=== PATIENT | female | born 1945 | race Caucasian/White ===

== ENCOUNTER → 2020-11-10 10:30 | Outpatient (BNVA) | payer MEDICARE, MEDICAID, SELFPAY | PROVIDERS: Family Provider Nurse Practitioner Family; PCP Nurse Practitioner Family; Referring Provider Nurse Practitioner Family; Visit Provider Anesthesiology Pain Medicine | DX: G89.29 Other chronic pain (principal); M54.16 Radiculopathy, lumbar region; M54.9 Dorsalgia, unspecified; Z90.89 Acquired absence of other organs | CPT/HCPCS: 99205 ==

== ENCOUNTER 2020-11-22 09:15 | Outpatient (CLI) | payer MEDICARE, MEDICAID, SELFPAY ==
--- NOTE | 2020-11-22 09:35 | MR_ITS ---
WS: [id number] MRI LUMBAR SPINE NONCONTRAST HISTORY: M54.16 - Radiculopathy, lumbar region COMPARISON: None available. TECHNIQUE: Sagittal and axial multisequence imaging is submitted. Advanced degenerative changes in the cervical spine. Cervical disc and osteophyte disease encroaching upon the cervical cord with multilevel areas of stenosis. Moderate thoracic spondylitic changes. No cord compression in the thoracic spine. Marked LEFT curvature of the lumbar spine with asymmetric disc space narrowing. There is severe disc space narrowing and desiccation with chronic endplate changes. L1 retrolisthesis by 2 mm and L5 anterolisthesis by 6 mm. Conus terminates normally at L1-2 disc level. T12-L1: Diffuse annular disc bulging and facet arthritis and osteophytosis. Mild bilateral foraminal stenosis. L1-L2: Diffuse asymmetric disc bulging with marked ligamentum flavum disease and facet arthritis. Dis c and osteophyte encroachment upon the thecal sac and foramen. Mild central and bilateral subarticula r recess and RIGHT foraminal stenosis. Severe LEFT foraminal stenosis. L2-L3: Diffuse asymmetric disc bulging with deformity of the thecal sac. Severe RIGHT facet joint art hritis and encroachment into the thecal sac and foramen. Severe RIGHT and moderate LEFT foraminal javier nosis. L3-L4: Diffuse osteophytic ridging with annular disc bulging with severe ligamentum flavum disease an d facet arthritis. Moderate central and bilateral subarticular recess and foraminal stenosis. Foramin al stenosis greatest on the RIGHT. L4-L5: Moderate diffuse annular disc bulging and osteophytic ridging with severe facet joint arthriti s and ligamentum flavum hypertrophy. Mild central and bilateral foraminal stenosis. L5-S1: Unroofing of the disc with annular disc bulging and osteophytic ridging. Severe LEFT and moder ate RIGHT foraminal stenosis and moderate central stenosis. MR/MR lumbar spine wo con* [id number] IMPRESSION: 1. Severe degenerative rotoscoliosis in the lumbar spine with multilevel areas of stenoses. Significant multilevel facet joint arthritis and ligamentum flavu m hypertrophy contributing to the stenosis and degenerative stenoses. 2. Severe LEFT foraminal stenosis at L1-2 with mild central, bilateral subarti cular and RIGHT foraminal stenosis. 3. Severe RIGHT and moderate LEFT foraminal stenosis at L2-3. 4. Moderate central, bilateral subarticular and foraminal stenosis at L3-4. 5. Severe LEFT and moderate RIGHT foraminal stenosis with moderate central javier nosis at L5-S1.
== END 2020-11-22 09:16 | disposition home or self-care (01) ==
PROVIDERS: PCP Nurse Practitioner Family; Visit Provider Anesthesiology Pain Medicine
DX: M54.16 Radiculopathy, lumbar region (principal); M48.07 Spinal stenosis, lumbosacral region; M48.061 Spinal stenosis, lumbar region without neurogenic claudication; M41.86 Other forms of scoliosis, lumbar region
CPT/HCPCS: 72148

== ENCOUNTER → 2020-12-08 10:19 | Outpatient (BNVA) | payer MEDICARE, MEDICAID, SELFPAY | PROVIDERS: PCP Nurse Practitioner Family; Visit Provider Anesthesiology Pain Medicine | DX: M51.16 Intervertebral disc disorders with radiculopathy, lumbar region (principal); M54.9 Dorsalgia, unspecified; M47.816 Spondylosis without myelopathy or radiculopathy, lumbar region; N18.30 Chronic kidney disease, stage 3 unspecified; Z90.89 Acquired absence of other organs; Z79.891 Long term (current) use of opiate analgesic | CPT/HCPCS: 99215 ==

== ENCOUNTER → 2020-12-13 13:10 | Outpatient (BNVA) | payer MEDICARE, MEDICAID, SELFPAY | PROVIDERS: PCP Nurse Practitioner Family; Visit Provider Anesthesiology Pain Medicine | DX: M47.816 Spondylosis without myelopathy or radiculopathy, lumbar region (principal) | CPT/HCPCS: 64493; 64494; 64495; J3490 ==

== ENCOUNTER → 2020-12-22 13:31 | Outpatient (BNVA) | payer MEDICARE, MEDICAID, SELFPAY | PROVIDERS: PCP Nurse Practitioner Family; Visit Provider Anesthesiology Pain Medicine | DX: M47.816 Spondylosis without myelopathy or radiculopathy, lumbar region (principal); M51.16 Intervertebral disc disorders with radiculopathy, lumbar region; M54.9 Dorsalgia, unspecified; N18.30 Chronic kidney disease, stage 3 unspecified; Z90.89 Acquired absence of other organs | CPT/HCPCS: 99214 ==

== ENCOUNTER → 2021-01-04 13:14 | Outpatient (BNVA) | payer MEDICARE, MEDICAID, SELFPAY | PROVIDERS: PCP Nurse Practitioner Family; Visit Provider Anesthesiology Pain Medicine | DX: M47.816 Spondylosis without myelopathy or radiculopathy, lumbar region (principal); M54.9 Dorsalgia, unspecified | CPT/HCPCS: 64635; 64636 ==

== ENCOUNTER → 2021-01-18 12:59 | Outpatient (BNVA) | payer MEDICARE, MEDICAID, SELFPAY | PROVIDERS: PCP Nurse Practitioner Family; Visit Provider Anesthesiology Pain Medicine | DX: M47.816 Spondylosis without myelopathy or radiculopathy, lumbar region (principal); M54.9 Dorsalgia, unspecified | CPT/HCPCS: 64635; 64636; J1030 ==

== ENCOUNTER → 2021-02-02 09:21 | Outpatient (BNVA) | payer MEDICARE, MEDICAID, SELFPAY | PROVIDERS: PCP Nurse Practitioner Family; Visit Provider Anesthesiology Pain Medicine | DX: M51.16 Intervertebral disc disorders with radiculopathy, lumbar region (principal); M47.816 Spondylosis without myelopathy or radiculopathy, lumbar region; M54.9 Dorsalgia, unspecified; N18.30 Chronic kidney disease, stage 3 unspecified; Z90.89 Acquired absence of other organs | CPT/HCPCS: 99213 ==

== ENCOUNTER 2021-04-19 12:38 | Outpatient (CLI) | payer MEDICARE, MEDICAID, SELFPAY ==
--- NOTE | 2021-04-19 12:45 | US_ITS ---
WS: [id number] ULTRASOUND RENAL TECHNIQUE: Ultrasound examination of both kidneys. CLINICAL INFORMATION: STAGE 3B CHRONIC KIDNEY DZ COMPARISON: None. FINDINGS: RIGHT: Right kidney is normal in size and appearance. Echogenicity: Normal. Cortical thickness: 1.2 cm; Normal. Hydronephrosis: None. Perinephric fluid: None. Right kidney measures: 9.2 cm x 4.1 cm x 4.5 cm. LEFT: Left kidney is normal in size and appearance. Echogenicity: Normal. Cortical thickness: 1.0 cm; Normal. Hydronephrosis: None. Perinephric fluid: None. Left kidney measures: 9.0 cm x 3.1 cm x 4.0 cm. Normal visualized aorta. Bladder is decompressed. US/US renal BI* [id number] IMPRESSION: 1. Normal renal ultrasound. 2. Bladder is decompressed.
== END 2021-04-19 12:39 | disposition home or self-care (01) ==
LOC: RAD 12:45
PROVIDERS: PCP Nurse Practitioner Family; Visit Provider Registered Nurse
DX: N18.32 Chronic kidney disease, stage 3b (principal)
CPT/HCPCS: 76770

== ENCOUNTER → 2021-05-04 10:20 | Outpatient (BNVA) | payer MEDICARE, MEDICAID, SELFPAY | PROVIDERS: PCP Nurse Practitioner Family; Visit Provider Anesthesiology Pain Medicine | DX: M47.816 Spondylosis without myelopathy or radiculopathy, lumbar region (principal); M51.16 Intervertebral disc disorders with radiculopathy, lumbar region; N18.30 Chronic kidney disease, stage 3 unspecified; M79.604 Pain in right leg; M79.605 Pain in left leg; Z90.89 Acquired absence of other organs; Z77.22 Contact with and (suspected) exposure to environmental tobacco smoke (acute) (chronic) | CPT/HCPCS: 99213 ==

== ENCOUNTER → 2021-10-10 11:27 | Day surgery (SDC) | payer MEDICARE, MEDICAID, SELFPAY ==
[2021-10-10 12:07] LABS: Blood Urea Nitrogen 20 mg/dL (8-23); Calcium 9.1 mg/dL (8.5-10.5)
--- NOTE | 2021-10-10 12:20 | PC.NURSE ---
Pt to GI lab for Reclast infusion. Pt Calcium WNL, however, Creatnine Clearance 32. Orders state not to give Reclast if CrCL less than 35. Reclast not infused. Pt states her PCP is JOSTIN Asif. Office notified of lab work and that Reclast not given.
[2021-10-10 12:53] VITALS: BP 107/59; PULSE 70; RESP 18; TEMP 36.4; O2SAT 96
--- NOTE | 2021-10-10 12:55 | PC.NURSE ---
Ordering physician, David Barone DO, office notified of abnormal lab results and Reclast not given as well.
== END ==
PROVIDERS: PCP Nurse Practitioner Family; Visit Provider Family Medicine
DX: M81.0 Age-related osteoporosis without current pathological fracture (principal)
CPT/HCPCS: 36415; 82310; 82565; 84520

== ENCOUNTER 2021-12-02 10:59 | Outpatient (CLI) | payer MEDICARE, MEDICAID, SELFPAY ==
--- NOTE | 2021-12-02 11:07 | MM_ITS ---
WS: [id number] SCREENING DIGITAL BREAST TOMOSYNTHESIS MAMMOGRAM WITH CAD HISTORY: SCREENING COMPARISON: None available. Attempted to retrieve prior mammograms from an outside institution withou t success. Bilateral CC and MLO with tomosynthesis and synthetic mammography submitted. Computer aided detection analyzed. Breast composition: There are scattered areas of fibroglandular density. Asymmetry in the upper outer quadrant RIGHT breast at a middle depth needs further evaluation. There are additional benign calcif ications within each breast. No additional masses or asymmetry. MM/[place] [id number] IMPRESSION: BI-RADS: 0-Incomplete: Need additional imaging evaluation FOLLOW UP: Need Additional Imaging RIGHT breast: Spot compression views (CC and MLO). True ML. Ultrasound to follo w if abnormality persists.
== END 2021-12-02 11:00 | disposition home or self-care (01) ==
LOC: RAD 11:02
PROVIDERS: PCP Nurse Practitioner Family; Visit Provider Family Medicine
DX: Z12.31 Encounter for screening mammogram for malignant neoplasm of breast (principal)
CPT/HCPCS: 77063; 77067

== ENCOUNTER → 2021-12-21 09:35 | Outpatient (BNVA) | payer MEDICARE, MEDICAID, SELFPAY | PROVIDERS: PCP Nurse Practitioner Family; Visit Provider Anesthesiology Pain Medicine | DX: M51.16 Intervertebral disc disorders with radiculopathy, lumbar region (principal); M47.816 Spondylosis without myelopathy or radiculopathy, lumbar region; N18.30 Chronic kidney disease, stage 3 unspecified; M79.604 Pain in right leg; M79.605 Pain in left leg; Z90.89 Acquired absence of other organs; Z79.891 Long term (current) use of opiate analgesic | CPT/HCPCS: 99214 ==

== ENCOUNTER → 2022-01-18 09:37 | Outpatient (BNVA) | payer MEDICARE, MEDICAID, SELFPAY | PROVIDERS: PCP Nurse Practitioner Family; Visit Provider Anesthesiology Pain Medicine | DX: M47.816 Spondylosis without myelopathy or radiculopathy, lumbar region (principal); M51.16 Intervertebral disc disorders with radiculopathy, lumbar region; N18.30 Chronic kidney disease, stage 3 unspecified; M79.604 Pain in right leg; M79.605 Pain in left leg; Z90.89 Acquired absence of other organs; Z79.891 Long term (current) use of opiate analgesic | CPT/HCPCS: 99215 ==

== ENCOUNTER 2022-01-19 09:26 | Outpatient (CLI) | payer MEDICARE, MEDICAID, SELFPAY ==
--- NOTE | 2022-01-19 09:51 | MM_ITS ---
WS: [email or web address] ADDITIONAL VIEWS RIGHT MAMMOGRAM WITH DIGITAL BREAST TOMOSYNTHESIS. RIGHT BREAST ULTRASOUND HISTORY: ABNORMAL MAMMOGRAM COMPARISON: 12/02/2021 RIGHT MAMMOGRAM: Spot compression views and true ML with digital breast tomosynthesis and SM. Asymmetry persists but becomes less apparent in the upper outer quadrant of the RIGHT breast. Ultraso und will be performed to better identify and characterize this density. There are a few benign calcif ications which are stable. RIGHT BREAST ULTRASOUND 2-D and color Doppler imaging submitted. No soft tissue mass identified in the upper outer quadrant of the RIGHT breast. There is a small cyst measuring 2 x 2 by 2 mm. MM/[place] [id number] IMPRESSION: BI-RADS: 2-Benign FOLLOW UP: 1 Year Follow-up
== END 2022-01-19 09:27 | disposition home or self-care (01) ==
LOC: RAD 09:30
PROVIDERS: PCP Nurse Practitioner Family; Visit Provider Family Medicine
DX: R92.8 Other abnormal and inconclusive findings on diagnostic imaging of breast (principal); R92.1 Mammographic calcification found on diagnostic imaging of breast; N60.01 Solitary cyst of right breast
CPT/HCPCS: 76642; 77061

== ENCOUNTER → 2022-03-28 14:12 | Outpatient (BNVA) | payer MEDICARE, MEDICAID, SELFPAY | PROVIDERS: PCP Nurse Practitioner Family; Visit Provider Anesthesiology Pain Medicine | DX: M47.816 Spondylosis without myelopathy or radiculopathy, lumbar region (principal); Z79.891 Long term (current) use of opiate analgesic | CPT/HCPCS: 64635; 64636; J1030 ==

== ENCOUNTER 2022-11-24 09:32 | Outpatient (CLI) | payer MEDICARE, MEDICAID, SELFPAY ==
--- NOTE | 2022-11-24 09:49 | XR_ITS ---
WS: [id number] Exam: XR shoulder RT min 2V* [id number] Date/Time of Exam: 11/24/2022 10:21 AM Reason For Exam: R SHOULDER JOINT PAIN No acute fracture or dislocation. High riding humeral head noted that might indicate long-standing ro tator cuff tear. Normal soft tissues. XR/XR shoulder RT min 2V* [id number] IMPRESSION: 1. Slight degenerative change. No fracture or dislocation. 2. High riding humeral head that might indicate long-standing rotator cuff tear .
== END 2022-11-24 09:33 | disposition home or self-care (01) ==
LOC: RAD 09:39
PROVIDERS: PCP Nurse Practitioner Family; Visit Provider Nurse Practitioner Family
DX: M25.511 Pain in right shoulder (principal)
CPT/HCPCS: 73030

== ENCOUNTER → 2023-02-05 09:31 | Outpatient (BNVA) | payer MEDICARE, MEDICAID, SELFPAY | PROVIDERS: PCP Nurse Practitioner Family; Referring Provider Nurse Practitioner Family; Visit Provider Student in an Organized Health Care Education/Training Program | DX: M25.511 Pain in right shoulder (principal); M75.41 Impingement syndrome of right shoulder | CPT/HCPCS: 20610; 73030; 99204; J3301 ==

== ENCOUNTER 2023-02-21 06:00 | Outpatient (RCR) | payer MEDICARE, MEDICAID, SELFPAY | END 2023-02-26 23:59 | disposition home or self-care (01) | LOC: TPT 06:00 | PROVIDERS: Visit Provider Student in an Organized Health Care Education/Training Program | DX: M25.511 Pain in right shoulder (principal) | CPT/HCPCS: 97110; 97162 ==

== ENCOUNTER 2023-02-27 06:00 | Outpatient (RCR) | payer MEDICARE, MEDICAID, SELFPAY | END 2023-03-29 23:59 | disposition home or self-care (01) | LOC: TPT 06:00 | PROVIDERS: Visit Provider Student in an Organized Health Care Education/Training Program | DX: M25.511 Pain in right shoulder (principal) | CPT/HCPCS: 97110 ==

== ENCOUNTER 2023-10-23 13:20 | Outpatient (CLI) | payer MEDICARE, MEDICAID, SELFPAY ==
--- NOTE | 2023-10-23 13:27 | XR_ITS ---
WS: [email or web address] SCREENING DEXA SCAN [employer] CLINICAL INFORMATION: OSTEOPOROSIS COMPARISON: None. FINDINGS: The L1-L4 bone mineral density measures 1.349 g/cm2. This corresponds to a T score score of 1.4 and Z score of 3.8. Left femoral neck bone mineral density measures 0.697 g/cm2. This corresponds to a T score of -2.5 an d Z score of -0.2. Right femoral neck bone mineral density measures 0.393 g/cm2. This corresponds to a T score -4.9of an d Z score of -2.6. IMPRESSION: Normal bone mineralization lumbar spine. Osteoporosis femoral necks. Patient's FRAX calculated 10 year probability for major osteoporotic fracture is 45.0% and osteoporot ic hip fracture is 30.2%.
== END 2023-10-23 13:21 | disposition home or self-care (01) ==
LOC: RAD 13:22
PROVIDERS: Visit Provider Family Medicine
DX: M81.0 Age-related osteoporosis without current pathological fracture (principal)
CPT/HCPCS: 77080

== ENCOUNTER 2023-11-13 06:00 | Outpatient (RCR) | payer MEDICARE, MEDICAID, SELFPAY | END 2023-11-27 23:59 | disposition home or self-care (01) | LOC: TPT 06:00 | PROVIDERS: Visit Provider Nurse Practitioner Family | DX: M25.511 Pain in right shoulder (principal) | CPT/HCPCS: 97110; 97162 ==

== ENCOUNTER → 2023-11-20 11:08 | Outpatient (BNVA) | payer MEDICARE, MEDICAID, SELFPAY | PROVIDERS: Visit Provider Anesthesiology Pain Medicine | DX: M51.16 Intervertebral disc disorders with radiculopathy, lumbar region (principal); M47.816 Spondylosis without myelopathy or radiculopathy, lumbar region; N18.30 Chronic kidney disease, stage 3 unspecified; Z90.89 Acquired absence of other organs; M48.061 Spinal stenosis, lumbar region without neurogenic claudication | CPT/HCPCS: 99214 ==

== ENCOUNTER 2023-11-28 06:00 | Outpatient (RCR) | payer MEDICARE, MEDICAID, SELFPAY | END 2023-12-28 23:59 | disposition home or self-care (01) | LOC: TPT 06:00 | PROVIDERS: Visit Provider Nurse Practitioner Family | DX: M25.511 Pain in right shoulder (principal) | CPT/HCPCS: 97110; 97140 ==

== ENCOUNTER 2023-12-29 06:00 | Outpatient (RCR) | payer MEDICARE, MEDICAID, SELFPAY | END 2024-01-27 23:59 | disposition home or self-care (01) | LOC: TPT 06:00 | PROVIDERS: Visit Provider Nurse Practitioner Family | DX: M25.511 Pain in right shoulder (principal) | CPT/HCPCS: 97110; 97140 ==

== ENCOUNTER 2024-06-09 14:11 | Outpatient (CLI) | payer MEDICARE, MEDICAID, SELFPAY ==
--- NOTE | 2024-06-09 14:20 | XRR_ITS ---
PROCEDURE INFORMATION: Exam: XR Lumbosacral Spine Exam date and time: 06/09/2024 2:27 PM Age: 79 years old Clinical indication: Low back pain; Additional info: Vertebrogenic low back pain, please comment on presence or absence of spinal instability TECHNIQUE: Imaging protocol: Radiologic exam of the lumbosacral spine. Views: 2 or 3 views. COMPARISON: MR lumbar spine wo con* [id number] 11/22/2020 9:51 AM FINDINGS: Bones/joints: Severe multilevel spondylosis of the lumbar spine with facet arthrosis, osteophytosis and endplate degeneration. No evidence of acute fracture or subluxation. Mild degenerative retrolisthesis of L1 on L2 and L2 on L3. No evidence of dynamic instability. The sacrum is grossly intact. Soft tissues: Grossly unremarkable. XR/XR lumbar spine f/e only [id number] IMPRESSION: 1. Severe spondylosis without evidence of acute fracture or subluxation of the lumbar spine. Consider correlation with follow-up outpatient MRI to evaluate for neural impingement.
== END 2024-06-09 14:12 | disposition home or self-care (01) ==
LOC: RAD 14:16
PROVIDERS: PCP Nurse Practitioner Family; Visit Provider Nurse Practitioner
DX: M47.896 Other spondylosis, lumbar region (principal); M25.78 Osteophyte, vertebrae
CPT/HCPCS: 72120

== ENCOUNTER → 2024-11-24 09:13 | Outpatient (BNVA) | payer MEDICARE, MEDICAID, SELFPAY | PROVIDERS: PCP Nurse Practitioner Family; Visit Provider Anesthesiology Pain Medicine | DX: M54.9 Dorsalgia, unspecified (principal); M51.16 Intervertebral disc disorders with radiculopathy, lumbar region; M47.26 Other spondylosis with radiculopathy, lumbar region | CPT/HCPCS: 99214 ==

== ENCOUNTER 2024-11-26 14:04 | Outpatient (CLI) | payer MEDICARE, MEDICAID, SELFPAY ==
--- NOTE | 2024-11-26 14:30 | MRR_ITS ---
PROCEDURE INFORMATION: Exam: MR Lumbar Spine Without Contrast Exam date and time: 11/26/2024 2:38 PM Age: 79 years old Clinical indication: Low back pain; Lbp RT sided. Rle pain with at times numbness to thigh; Additional info: M54.16 - radiculopathy, lumbar region TECHNIQUE: Imaging protocol: Magnetic resonance imaging of the lumbar spine without contrast. COMPARISON: MR lumbar spine wo con* [id number] 11/22/2020 9:51 AM FINDINGS: Bones/joints: Grade 1 anterolisthesis of L5 on S1 measuring up to 0.6 cm. Levoscoliosis centered at L2-L3. The vertebral body heights are maintained. Moderate multilevel disc space narrowing throughout the lumbar spine with associated adjacent endplate changes. Stable low T1 and T2 focus left iliac bone measuring up to 1 cm in size and may represent an area of nonspecific sclerosis. Spinal cord: The conus terminates normally at the L1-L2 level. The roots of the cauda equina are not clumped or thickened. 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 L1-L2: Broad concentric disc bulge and bilateral facet arthropathy contributing to moderate central canal stenosis. Moderate left and mild right neuroforaminal narrowing. L2-L3: Broad concentric disc bulge with a right lateral component along with bilateral facet arthropathy contributing to moderate central canal stenosis. Mild left and severe right neuroforaminal narrowing . L3-L4: Broad concentric disc bulge and bilateral facet arthropathy contributing to moderate central canal stenosis. Moderate left and severe right neuroforaminal narrowing. L4-L5: Broad concentric disc bulge and bilateral facet arthropathy contributing to moderate central canal stenosis. Moderate bilateral neuroforaminal narrowing. L5-S1: Broad concentric disc bulge and bilateral facet arthropathy contributing to mild central canal stenosis. Mild right and severe left neuroforaminal narrowing. Soft tissues: Subcentimeter bilateral renal cysts. MR/MR lumbar spine wo con* [id number] IMPRESSION: Multilevel degenerative changes of the lumbar spine as outlined above.
== END 2024-11-26 14:05 | disposition home or self-care (01) ==
PROVIDERS: PCP Nurse Practitioner Family; Visit Provider Anesthesiology Pain Medicine
DX: M54.16 Radiculopathy, lumbar region (principal); R93.7 Abnormal findings on diagnostic imaging of other parts of musculoskeletal system; M51.369 Other intervertebral disc degeneration, lumbar region without mention of lumbar back pain or lower extremity pain; G96.191 Perineural cyst; M47.896 Other spondylosis, lumbar region; M48.061 Spinal stenosis, lumbar region without neurogenic claudication; M51.379 Other intervertebral disc degeneration, lumbosacral region without mention of lumbar back pain or lower extremity pain; M47.897 Other spondylosis, lumbosacral region; M48.07 Spinal stenosis, lumbosacral region; N28.1 Cyst of kidney, acquired
CPT/HCPCS: 72148

== ENCOUNTER → 2024-12-08 11:15 | Outpatient (BNVA) | payer MEDICARE, MEDICAID, SELFPAY | PROVIDERS: PCP Nurse Practitioner Family; Visit Provider Anesthesiology Pain Medicine | DX: M54.9 Dorsalgia, unspecified (principal); M47.816 Spondylosis without myelopathy or radiculopathy, lumbar region; M51.16 Intervertebral disc disorders with radiculopathy, lumbar region; N18.30 Chronic kidney disease, stage 3 unspecified; Z90.89 Acquired absence of other organs | CPT/HCPCS: 99214 ==

== ENCOUNTER → 2025-01-07 10:47 | Outpatient (BNVA) | payer MEDICARE, MEDICAID, SELFPAY | PROVIDERS: PCP Nurse Practitioner Family; Visit Provider Anesthesiology Pain Medicine | DX: M47.816 Spondylosis without myelopathy or radiculopathy, lumbar region (principal); M54.9 Dorsalgia, unspecified | CPT/HCPCS: 64493; 64494; 64495; J3490; J9999 ==

== ENCOUNTER → 2025-01-13 09:38 | Outpatient (BNVA) | payer MEDICARE, MEDICAID, SELFPAY | PROVIDERS: PCP Nurse Practitioner Family; Visit Provider Anesthesiology Pain Medicine | DX: M54.9 Dorsalgia, unspecified (principal); M47.816 Spondylosis without myelopathy or radiculopathy, lumbar region; M51.16 Intervertebral disc disorders with radiculopathy, lumbar region; N18.30 Chronic kidney disease, stage 3 unspecified; Z90.89 Acquired absence of other organs | CPT/HCPCS: 99214 ==

== ENCOUNTER → 2025-01-28 10:40 | Outpatient (BNVA) | payer MEDICARE, MEDICAID, SELFPAY | PROVIDERS: PCP Family Medicine; Visit Provider Anesthesiology Pain Medicine | DX: M47.816 Spondylosis without myelopathy or radiculopathy, lumbar region (principal); M54.9 Dorsalgia, unspecified | CPT/HCPCS: 64493; 64494; 64495; J3490; J9999 ==

== ENCOUNTER → 2025-02-10 09:05 | Outpatient (BNVA) | payer MEDICARE, MEDICAID, SELFPAY | PROVIDERS: PCP Family Medicine; Visit Provider Anesthesiology Pain Medicine | DX: M54.9 Dorsalgia, unspecified (principal); M47.816 Spondylosis without myelopathy or radiculopathy, lumbar region; M51.16 Intervertebral disc disorders with radiculopathy, lumbar region | CPT/HCPCS: 99214 ==

== ENCOUNTER 2025-03-04 14:34 | Outpatient (CLI) | payer MEDICARE, MEDICAID, SELFPAY ==
--- NOTE | 2025-03-04 14:48 | US_ITS ---
WS: [id number] RENAL ULTRASOUND HISTORY: GROSS HEMATURIA/GENERAL RENAL PARENCHYMAL DZ COMPARISON: 04/19/2021 TECHNIQUE: 2-D and color Doppler imaging of the kidney submitted. Right kidney: 9.0 cm x 3.9 cm x 4.1 cm. Cortex: 1.0 cm Normal echogenicity with no hydronephrosis or mass. Left kidney: 8.2 cm x 3.4 cm x 3.5 cm. Cortex: 1.0 cm LEFT kidney is difficult to visualize in its entirety due to its position. Kidney is measuring small in length but this may be due to incomplete evaluation of the kidney. The cortex is minimally thinned. Aorta: Normal. Urinary Bladder: Normal distention. US/US renal BI* [id number] IMPRESSION: 1. LEFT kidney measuring small in size. In part this may be due to difficulty visualizing the entire kidney. 2. There is no hydronephrosis. Normal echogenicity. 3. No renal mass.
== END 2025-03-04 14:35 | disposition home or self-care (01) ==
LOC: RAD 14:37
PROVIDERS: PCP Family Medicine; Visit Provider Registered Nurse
DX: R31.9 Hematuria, unspecified (principal); N28.9 Disorder of kidney and ureter, unspecified
CPT/HCPCS: 76770

== ENCOUNTER → 2025-03-11 12:36 | Outpatient (BNVA) | payer MEDICARE, MEDICAID, SELFPAY | PROVIDERS: PCP Family Medicine; Visit Provider Anesthesiology Pain Medicine | DX: M47.816 Spondylosis without myelopathy or radiculopathy, lumbar region (principal); M54.9 Dorsalgia, unspecified | CPT/HCPCS: 64635; 64636; J1100; J9999 ==

== ENCOUNTER → 2025-03-24 07:54 | Outpatient (BNVA) | payer MEDICARE, MEDICAID, SELFPAY | PROVIDERS: PCP Family Medicine; Visit Provider Anesthesiology Pain Medicine | DX: M54.9 Dorsalgia, unspecified (principal); M47.816 Spondylosis without myelopathy or radiculopathy, lumbar region; M51.16 Intervertebral disc disorders with radiculopathy, lumbar region; N18.30 Chronic kidney disease, stage 3 unspecified; Z90.89 Acquired absence of other organs | CPT/HCPCS: 99213 ==

== ENCOUNTER 2025-05-29 09:20 | Outpatient (CLI) | payer MEDICARE, MEDICAID, SELFPAY ==
--- NOTE | 2025-05-29 09:25 | MR_ITS ---
WS: [email or web address] MRI HEAD WITHOUT CONTRAST TECHNIQUE: Sagittal T1, T2 axial, T2 axial FLAIR, axial and coronal T1 images, axial susceptibility weighted imaging, axial diffusion weighted images, and coronal T2 images were obtained. CLINICAL INFORMATION: LOSS OF COORDINATION,UNSPECIFIED FALL COMPARISON: None. FINDINGS: No evidence of restricted diffusion to suggest acute ischemia. Moderate small vessel changes with moderate parenchymal volume loss. Small vessel changes in the zainab. No hemosiderin on the susceptibility weighted images. Moderate symmetric atrophy temporal lobes and hippocampal formations. Normal posterior fossa. Normal vascular flow voids at the skull base. No extra- axial fluid collections. Paranasal sinuses and mastoid air cells are well aerated. Partially visualized deformity of the C3 vertebral body with posterior protrusion may be due to prior healed fracture but incompletely visualized. Slight indentation cervical cord with mild central canal stenosis. Recommend further evaluation with cervical spine CT MR/MR head wo con* [id number] IMPRESSION: 1. No evidence of restricted diffusion to suggest acute ischemia. 2. Partially visualized deformity of the C3 vertebral body may be due to prior healed fracture. This is incompletely evaluated. Recommend further evaluation with cervical spine CT. Mild central canal stenosis at the C3 level with slight indentation on the cervical cord. 3. Moderate small vessel changes. Moderate parenchymal volume loss. Small vess el changes in the zainab. 4. No extra-axial fluid collections. 5. No hemosiderin on the susceptibly weighted images. 6. No other acute findings.
== END 2025-05-29 09:21 | disposition home or self-care (01) ==
PROVIDERS: PCP Family Medicine; Visit Provider Family Medicine
DX: R27.9 Unspecified lack of coordination (principal); T14.90XA Injury, unspecified, initial encounter; W19.XXXA Unspecified fall, initial encounter; Z87.311 Personal history of (healed) other pathological fracture; R90.89 Other abnormal findings on diagnostic imaging of central nervous system; G31.9 Degenerative disease of nervous system, unspecified; I67.89 Other cerebrovascular disease
CPT/HCPCS: 70551

== ENCOUNTER 2025-06-17 13:23 | Outpatient (CLI) | payer MEDICARE, MEDICAID, SELFPAY ==
--- NOTE | 2025-06-17 13:30 | CT_ITS ---
WS: [email or web address] CT CERVICAL SPINE TECHNIQUE: Noncontrast CT of the cervical spine with coronal and sagittal reformatted images. CLINICAL INFORMATION: ABNORMAL BRAIN MRI COMPARISON: None. DLP: 141.[address] scans at [facility] use at least one of these dose optimization techniques: automated exposure control; mA and/or kV adjustment per patient size (includes targeted exams where dose is matched to clinical indication); or iterative reconstruction. FINDINGS: Straightening of the normal cervical lordosis. Moderate to advanced spondylitic changes. Grade 1-2 anterolisthesis C3 on C4. Grade 1 anterolisthesis C6 on C7. This is probably due to prior trauma with fracture deformity. Bony ankylosis C3- C4 and C6-7. Ankylosis of the posterior elements at RIGHT C3-4 and RIGHT C6-7. C2-C3: Mild disc bulging with mild to moderate central canal stenosis. Moderate LEFT and no significant RIGHT foraminal narrowing. Moderate facet arthropathy. C3-C4: Grade 1-2 anterolisthesis. Disc osteophyte complex with mild to moderate central canal stenosis. Moderate facet arthropathy. Mild bilateral bony foraminal narrowing. C4-C5: Disc osteophyte complex with endplate ridging. Moderate facet arthropathy. Moderate RIGHT bony foraminal narrowing. Facet arthropathy with uncovertebral joint hypertrophy. Mild to moderate moderate central canal stenosis. C5-C6: Disc osteophyte complex with endplate ridging. Moderate facet arthropathy. Mild bilateral bony foraminal narrowing. C6-C7: Grade 1 anterolisthesis. Mild LEFT and no significant RIGHT foraminal narrowing. Uncovertebral joint hypertrophy. Spinal canal is patent. C7-T1: Slight anterolisthesis C7 on T1. Spinal canal and foramen are patent. Visualized posterior nasopharynx: Normal. Prevertebral soft tissues: Normal. Carotid bulb calcification CT/CT cervical spin wo con* [id number] IMPRESSION: 1. Advanced spondylitic changes. Grade 1-2 anterolisthesis C3 on C4 with bony ankylosis. Grade 1 anterolisthesis C6 on C7 bony ankylosis. Slight anterolisthe sis C7 on T1. Findings likely due to prior healed fracture deformities. 2. Ankylosis across the C3-4 and C6-7 disc space with ankylosis of the posteri or elements at RIGHT C3-4 and RIGHT C6-7. 3. Mild to moderate central canal stenosis C2-3, C3-4, and C4-5. 4. Bony foraminal narrowing described above
== END 2025-06-17 13:24 | disposition home or self-care (01) ==
LOC: RAD 13:24
PROVIDERS: PCP Family Medicine; Visit Provider Family Medicine
DX: R94.02 Abnormal brain scan (principal); M50.31 Other cervical disc degeneration, high cervical region; M48.02 Spinal stenosis, cervical region; M47.812 Spondylosis without myelopathy or radiculopathy, cervical region
CPT/HCPCS: 72125

== ENCOUNTER 2025-07-17 10:32 | Outpatient (CLI) | payer MEDICARE, MEDICAID, SELFPAY ==
[2025-07-17 12:36] LABS: Albumin Level 4.9 g/dL (3.5-5.2); Anion Gap 18.8 (5-19); Blood Urea Nitrogen 17 mg/dL (8-23); Calcium 10.2 mg/dL (8.5-10.5); Carbon Dioxide 23 mmol/L (22-29); Chloride 99 mmol/L (98-107); Glucose 89 mg/dL (65-115); Potassium 3.8 mmol/L (3.5-5.1); Sodium 137 mmol/L (136-145)
[2025-07-17 12:43] LABS: Creatinine Urine, Random 128 mg/dL (28-217); Microalbum Creatinine Ratio Ur 39 mg/dL (0-20)
[2025-07-17 12:44] LABS: UPRO/UCREAT Ratio 0.24 mg/mg CR
[2025-07-17 14:24] LABS: Glucose Urine UA Negative (Normal); Nitrate Urine Negative (Negative); Specific Gravity, Urine 1.022 (1.005-1.030)
[2025-07-18 05:19] LABS: PROTEIN, TOTAL 7.9 g/dL (6.1-8.1)
== END 2025-07-17 10:33 | disposition home or self-care (01) ==
LOC: LAB 10:46
PROVIDERS: PCP Family Medicine; Visit Provider Registered Nurse
DX: N18.32 Chronic kidney disease, stage 3b (principal)
CPT/HCPCS: 36415; 80069; 81001; 82044; 82570; 83883; 84155; 84156; 84165; 86036; 86225; 86235